=== PATIENT | female | born 1945 | race Caucasian/White ===

== ENCOUNTER 2021-08-28 14:00 | Emergency (ER) | payer MEDICARE, OTHER ==
[~2021-08-28] VITALS: Ht 157.5 cm; Wt 95.5 kg
[2021-08-28 14:18] VITALS: BP 144/68
[2021-08-28] MEDS ORDERED: ACETAMINOPHEN 500 MG TABLET PO ONE (14:45)
--- NOTE | 2021-08-28 14:51 | PHYS DOC ---
Past History Additional Past Medical Histor: CKD Past Surgical History: Knee Replacement Alcohol Use: None General Adult EDM: Chief Complaint: UPPER EXTREMITY INJURY HPI: HPI: Patient is a 76 yo female with PMH significant for DM, neuropathy, and tremors that presents to the ED after falling on on her right wrist at the [employer]. Denies any hitting her head. She drove herself to the ED and would like to drive herself home. She is right hand dominant. Reports her pain as a 9 of 10. 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 Denies elbow tenderness. She would like to avoid opioid pain medication. Allergy to penicillin. Review of Systems: Review of Systems: Constitutional: Denies fever or chills HENT: Denies nasal congestion or sore throat Respiratory: Denies cough or shortness of breath Cardiovascular: Denies chest pain or palpitations GI: Denies abdominal pain, nausea, or vomiting Musculoskeletal: Denies back pain or joint pain Integument: Denies rash or skin lesions Neurologic: Denies headache, focal weakness or sensory changes. Reports tremors Complete systems were reviewed and found to be within normal limits, except as documented in this note. Allergies: Allergies: Allergies Coded Allergies Type Severity Reaction Last Updated Verified Penicillins Allergy Unknown 08/28/21 Yes Physical Exam: PE: Constitutional: no acute distress, non-toxic appearance. [] HENT: Normocephalic, atraumatic Eyes: conjunctiva normal, no discharge. [] Neck: Normal range of motion, no tenderness [] ] Skin: Warm, dry, no erythema, no rash. [] Extremities: -R wrist edematous compared to the L, decreased ROM of R wrist especially with flexion, Tender on medial and lateral aspect of distal wrist Neurologic: Alert and oriented X 3, normal motor function, normal sensory function, no focal deficits noted. [] Psychologic: Affect normal, judgement normal, mood normal. [] Current Patient Data: Vital Signs: Vital Signs Date Time Temp Pulse Resp B/P (MAP) Pulse Ox O2 Delivery O2 Flow Rate FiO2 08/28/21 14:18 85 18 144/68 (93) 98 EKG: EKG: [] Radiology/Procedures: Radiology/Procedures: [] Heart Score: C/O Chest Pain: N/A Course & Med Decision Making: Course & Med Decision Making Pertinent Imaging studies reviewed. (See chart for details) Patient stable for discharge with outpatient follow-up with PCP/orthopedics. Orthopedic referral provided. Discussed findings and plan with patient, who acknowledges understanding and agreement. Michael Disclaimer: Michael Disclaimer: This electronic medical record was generated, in whole or in part, using a voice recognition dictation system. Departure Departure: Impression: Primary Impression: Distal radius fracture, right Qualified Codes: S52.501A - Unspecified fracture of the lower end of right radius, initial encounter for closed fracture Disposition: HOME / SELF CARE / HOMELESS Condition: STABLE Referrals: MOY DAVALOS MD (PCP) BHARGAV MA II, MD Patient Instructions: Arm Sling Use, [id number], Splint Care, [id number], Wrist Fracture, [id number] Additional Instructions: Make sure to take arm out of sling and perform shoulder circles 10 times in each direction at least 5 times daily to help prevent a frozen shoulder. May use [id number] ibuprofen and or Tylenol for pain or discomfort. Do not take extra Tylenol if using prescribed Tylenol #3 pain medication. Ice area 20 minutes on then leave off for next 20 minutes. Repeat several times daily for the next few days. Scripts Acetaminophen With Codeine (ACETAMINOPHEN-COD #3 TABLET) 1 Each Tablet 1 TAB PO PRN Q6HRS PRN for PAIN, #14 TAB Prov: FLORENCE BCEK DO 08/28/21 FLORENCE BECK DO Aug 28, 2021 14:51
[2021-08-28] MEDS ORDERED: ACET1TAB33 PO (15:43)
--- NOTE | 2021-08-29 11:43 | RAD ---
XR RT WRIST 3VIEWS DATE: 08/28/2021 2:44 PM INDICATION: pain s/p fall COMPARISON: None. FINDINGS/ IMPRESSION: Acute comminuted and impacted distal radius intra-articular fracture. Acute mildly displaced ulnar styloid fracture. Electronically signed by: Kennedy Rizvi MD (08/28/2021 3:24 PM) [id number]
--- NOTE | 2021-08-29 11:43 | RAD ---
XR ELBOW COMPLETE_RIGHT 3+ VIEWS DATE: 08/28/2021 2:44 PM INDICATION: pain s/p fall COMPARISON: None. FINDINGS: Bones: There is no evidence of acute fracture or dislocation. Joints: The joint spaces are normal. There is no joint effusion. Miscellaneous: None. IMPRESSION: No evidence of acute fracture. Electronically signed by: Kennedy Rizvi MD (08/28/2021 3:26 PM) [id number]
== END 2021-08-28 16:58 | disposition home or self-care (01) ==
LOC: ER 14:00
DX: S52.501A Unspecified fracture of the lower end of right radius, initial encounter for closed fracture (principal); E11.22 Type 2 diabetes mellitus with diabetic chronic kidney disease; N18.9 Chronic kidney disease, unspecified; E11.40 Type 2 diabetes mellitus with diabetic neuropathy, unspecified; Z88.0 Allergy status to penicillin; W18.39XA Other fall on same level, initial encounter; Y93.89 Activity, other specified; Y92.89 Other specified places as the place of occurrence of the external cause; Y99.8 Other external cause status
CPT/HCPCS: 73080; 73110; 99284